=== PATIENT | male | born 1945 | race Caucasian/White ===

== ENCOUNTER → 2016-09-18 | Outpatient (CLI) | payer OTHER, BC ==
[~2016-09-18] VITALS: Ht 177.8 cm; Wt 89.8 kg
[~2016-09-18] MED LIST: AIRBORNE TABLE1 EAC1 PO; ALEVE220 MG PO; ASPIRIN325 PO; CEFDINIR300 MG PO; CEPHALEXIN500 MG PO; IBUPROFEN 800800 MG PO; NEXIUM40 MG PO; NORCO 5-325 TA1 EACH PO; PLAVIX 75 MG TA75 M1 PO; ROBITUSSIN100 MG/53 PO; TESSALON PERLE100 MG PO; VENTOLIN HFA 1818 GM INH
[2016-09-18 11:11] VITALS: BP 131/83
[2016-09-18 11:56] LABS: HEMATOCRIT 40.6 % (42.0-52.0); HEMOGLOBIN 14.2 gm/dL (14.0-18.0); MCH 29.1 pg (26.0-34.0); MCHC 34.9 g/dL (28.0-37.0); MCV 83.5 fL (80.0-100.0); RBC 4.86 mil/uL (4.50-6.00); RDW 13.1 % (10.5-14.5); WBC 5.6 thou/uL (4.0-11.0)
[2016-09-18 12:03] LABS: CALCIUM 8.7 mg/dL (8.5-10.1); CREATININE 1.2 mg/dL (0.7-1.3)
[2016-09-18 12:10] LABS: APTT 25.3 Seconds (24.5-32.8); PROTIME 10.7 Seconds (9.3-11.4)
[2016-09-18 16:30] VITALS: BP 145/87
== END ==
LOC: SPEC 10:46
PROVIDERS: Nuclear Medicine Nuclear Cardiology
DX: I65.29 Occlusion and stenosis of unspecified carotid artery (principal); I70.1 Atherosclerosis of renal artery; I10 Essential (primary) hypertension; G45.8 Other transient cerebral ischemic attacks and related syndromes; I77.2 Rupture of artery

== ENCOUNTER 2020-04-22 08:56 | Emergency (ER) | payer BC, OTHER ==
[~2020-04-22] VITALS: Ht 175.3 cm; Wt 95.3 kg
[2020-04-22 09:14] LABS: URINE BILIRUBIN NEGATIVE (Negative); URINE BLOOD NEGATIVE (Negative); URINE CLARITY CLEAR; URINE COLOR YELLOW; URINE GLUCOSE-RANDOM* NEGATIVE (Negative); URINE KETONES NEGATIVE (Negative); URINE LEUKOCYTES-REFLEX NEGATIVE (Negative); URINE NITRITE-REFLEX NEGATIVE (Negative); URINE PROTEIN (DIPSTICK) NEGATIVE (Negative); URINE SPECIFIC GRAVITY 1.025 (1.005-1.035); URINE UROBILINOGEN 0.2 E.U./dl (0.2-1.0)
[2020-04-22 09:59] LABS: ABSOLUTE NEUTROPHILS 5.3 thou/uL (1.4-8.2); BASOPHILS 0.5 % (0.0-2.0); EOSINOPHILS 0.4 % (0.0-3.0); HEMATOCRIT 42.2 % (42.0-52.0); HEMOGLOBIN 14.2 gm/dL (14.0-18.0); LYMPHOCYTES 17.7 % (24.0-44.0); MCH 28.9 pg (26.0-34.0); MCHC 33.7 g/dL (28.0-37.0); MCV 85.8 fL (80.0-100.0); MONOCYTES 7.9 % (1.0-8.0); PLATELET COUNT 243 thou/uL (150-400); POLYS 73.5 % (36.0-66.0); RBC 4.91 mil/uL (4.50-6.00); RDW 13.4 % (10.5-14.5); WBC 7.2 thou/uL (4.0-11.0)
[2020-04-22 10:01] LABS: CREATININE 1.4 mg/dL (0.7-1.3); POTASSIUM 4.1 mmol/L (3.5-5.1)
[2020-04-22 10:10] LABS: CALCIUM 8.8 mg/dL (8.5-10.1)
[2020-04-22 12:11] VITALS: BP 148/58
== END 2020-04-22 12:11 | disposition home or self-care (01) ==
LOC: ER 08:56
PROVIDERS: Emergency Medicine
DX: M54.5 Low back pain (principal); N28.89 Other specified disorders of kidney and ureter; Z90.49 Acquired absence of other specified parts of digestive tract; Z79.01 Long term (current) use of anticoagulants; Z79.82 Long term (current) use of aspirin; Z79.899 Other long term (current) drug therapy

== ENCOUNTER 2020-06-11 16:26 | Emergency (ER) | payer BC, OTHER ==
[~2020-06-11] VITALS: Ht 175.3 cm; Wt 97.5 kg
[2020-06-11 18:29] VITALS: BP 126/79
[2020-06-11] MEDS ORDERED: TESSALON PERLE100 MG PO (18:59)
== END 2020-06-11 19:33 | disposition home or self-care (01) ==
LOC: ER 16:26
DX: U07.1 COVID-19 (principal); J45.909 Unspecified asthma, uncomplicated; R11.2 Nausea with vomiting, unspecified; Z90.49 Acquired absence of other specified parts of digestive tract; Z79.899 Other long term (current) drug therapy; Z79.82 Long term (current) use of aspirin

== ENCOUNTER 2021-04-25 14:09 | Emergency (ER) | payer BC, OTHER ==
[~2021-04-25] VITALS: Ht 175.3 cm; Wt 93.4 kg
[2021-04-25 14:09] VITALS: BP 149/83
[2021-04-25] MEDS ORDERED: FLEXERIL PO (15:21)
== END 2021-04-25 14:55 | disposition home or self-care (01) ==
LOC: ER 14:09
DX: M54.2 Cervicalgia (principal); R25.2 Cramp and spasm; Z90.49 Acquired absence of other specified parts of digestive tract; Z98.890 Other specified postprocedural states; Z79.51 Long term (current) use of inhaled steroids; Z79.82 Long term (current) use of aspirin; Z79.899 Other long term (current) drug therapy; Z79.891 Long term (current) use of opiate analgesic

== ENCOUNTER 2021-05-16 17:23 | Emergency (ER) | payer BC, OTHER ==
[~2021-05-16] VITALS: Ht 175.3 cm; Wt 93.0 kg
[~2021-05-16 17:23] MED LIST changes: +FLEXERIL PO
[2021-05-16 17:31] VITALS: BP 164/96
[2021-05-16] MEDS ORDERED: AZITHROMYCIN 2250 MG PO (18:52)
== END 2021-05-16 18:55 | disposition home or self-care (01) ==
LOC: ER 17:23
PROVIDERS: Nurse Practitioner Family
DX: J40 Bronchitis, not specified as acute or chronic (principal); Z20.822 Contact with and (suspected) exposure to COVID-19; Z90.89 Acquired absence of other organs; Z98.890 Other specified postprocedural states; Z85.528 Personal history of other malignant neoplasm of kidney; Z79.51 Long term (current) use of inhaled steroids; Z79.82 Long term (current) use of aspirin; Z79.891 Long term (current) use of opiate analgesic; Z79.899 Other long term (current) drug therapy